=== PATIENT | female | born 1995 ===

== ENCOUNTER 2018-09-06 20:07 | Observation (INO) ==
--- NOTE | 2018-09-06 20:39 | OB/GYN History & Physical ---
Date of Encounter: 09/06/18 Time of Encounter: 20:35 Assessment and Plan (1) 32 weeks gestation of Current visit: Yes Status: Acute admitted for PIH evaluation Dr. Burkett aware of patient admission and BPs no new orders at this time (2) Elevated blood pressure affecting in third trimester, antepartum Current visit: Yes Status: Acute BPs reported to Dr. Burkett. PIH labs pending (3) Tachycardia Current visit: No Status: Acute EKG pending History of Present Illness Chief complaint: elevated BP HPI: Ms. Dahl is a 22 year old female at 32w0d presents to labor and delivery for PIH evaluation. Patient was contacted by Dr. Scott today because she had an elevated BP on 09/01/18 at her appointment and he wanted her to come to labor and delivery for PIH evaluation. Patient denies headache, dizziness, visual disturbances or edema. Patient denies contractions, LOF or VB. Patient reports good movement. Past Med Surg Social Fam HX - Past Medical History Source: patient Medical history: asthma Psychiatric history: no psych history - Past Surgical History Surgical History: cholecystectomy Additional surgical history: T&A - Social History Smoking Status: Never smoker Alcohol use: none Drug use: none - Family History Mother Living Status: Still Living Paternal Grandmother Adopted: No Hx Family Cardiac Disorders: No Hx Family Respiratory Disorders: No Hx Family Cancer: No Hx Family GI Disorders: No Hx Family Genitourinary Disorders: No Hx Family Endocrine Disorder: Yes (diabetes) Hx Family Musculoskeletal Disorders: No Hx Family Neuromuscular Disorders: No Hx Family Neurologic Disorders: No Hx Family HEENT Disorders: No Hx Family Autoimmune Disorders: No Hx Family Reproductive Disorders: No Hx Family Psychosocial Disorders: No Hx Family Medical Disorders: No Obstetrical History - Pregnancies : 2 Para: 1 Term: 1 : 0 Ab's: 0 Livin Medications and Allergies Allergy/AdvReac Type Severity Reaction Status Date / Time No Known Allergies Allergy Verified 08/04/18 02:53 Review of System OB - Constitutional Constitutional ROS IM: no chills, no fever(s), no headache(s) - Cardiovascular Cardiovascular: no chest pain, no edema, no leg edema, no lightheadedness, no palpitations, no syncope - Gastrointestinal Gastrointestinal: no constipation, no cramping, no diarrhea, no heartburn, no nausea, no vomiting - Genitourinary Genitourinary: no abnormal vaginal bleeding, no dysuria, no flank pain, no urinary frequency, no urinary urgency, no vaginal discharge, no vaginal odor, no vaginal pruritis Exam - Constitutional Constitutional: well developed, well nourished, no acute distress, obese - HEENT HEENT: Normocephaly, Mucus Membranes Moist - Neck Neck exam: full ROM, normal inspection, supple - Lungs Respiratory exam: CTAB - Cardiovascular Cardiovascular exam: tachycardia - Abdomen Abdomen: Present: bowel sounds normal, gravid, non tender - Extremities Extremities exam: full ROM, normal inspection Deep Tendon Reflex Grade: 2+ Normal - Comments Comments: FHr 145 bpm moderate variability +15x15 accels no decels noted. No contractions. Cat. 1 tracing Results Result Diagrams: 09/06/18 20:15 09/06/18 20:15 All other labs normal. - VTE Reasons for not Prescribing Prophylaxis: Treatment not Indicated - Low risk for VTE
[2018-09-06 20:41] LABS: Basophils % 0.3 %; Eosinophils # 0.1 K/mcL (0.0-0.6); Eosinophils % 0.6 %; Hematocrit 34.8 % (35.3-44.9); Hemoglobin 11.9 g/dL (11.5-15.4); Immature Granulocytes % 1.2 % (0-4); Lymphocytes # 2.2 K/mcL (0.6-4.6); Lymphocytes % 24.5 %; Mean Corpuscular HGB Conc 34.2 g/dL (31.6-35.5); Mean Corpuscular Hemoglobin 31.7 pg (28.0-33.3); Mean Corpuscular Volume 92.8 fL (83.0-100.0); Mean Platelet Volume 8.7 fL (9.4-12.4); Monocytes # 0.4 K/mcL (0.0-1.3); Monocytes % 4.6 %; Neutrophils # 6.2 K/mcL (1.6-8.9); Platelet Count 217 K/mcL (140-400); Red Blood Count 3.75 M/mcL (3.82-4.97); Red Cell Distribution Width 13.5 % (11.5-14.5); Segmented Neutrophils % 68.8 %
[2018-09-06 20:48] LABS: Amphetamine Screen,Urine Negative ng/mL (Cutoff=1000); Barbiturate Screen,Urine Negative ng/mL (Cutoff=200); Benzodiazepines Screen,Urine Negative ng/mL (Cutoff=200); Cannabinoid Screen,Urine Negative ng/mL (Cutoff = 50); Cocaine Screen,Urine Negative ng/mL (Cutoff= 300); Opiate Screen,Urine Negative ng/mL (Cutoff=300); Phencyclidine Screen,Urine Negative ng/mL (Cutoff=25); Protein/Creatinine Ratio,Urine 0.14 mg/mg (0.00-0.20)
[2018-09-06 20:58] LABS: Alanine Aminotransferase 9 Units/L (7-52); Aspartate Amino Transferase 12 Units/L (13-39); BUN/Creatinine Ratio 16 (6-26); Blood Urea Nitrogen 7 mg/dL (6-20); Lactate Dehydrogenase 127 Units/L (140-271); Uric Acid 4.8 mg/dL (2.3-7.6); eGFR For Non-African Americans > 60 (> 60)
--- NOTE | 2018-09-06 21:35 | Discharge Summary ---
Date of Encounter: 09/06/18 Time of Encounter: 21:34 - Discharge Diagnosis (1) 32 weeks gestation of Priority: Primary Status: Acute (2) Elevated blood pressure affecting in third trimester, antepartum Priority: Secondary Status: Acute Comments: Reviewed EKG, labs and BPs with Dr. Burkett Plan to discharge home with 24 hour urine and follow up with Dr. Scott (3) Tachycardia Priority: Secondary Status: Acute Comments: EKG: Sinus tachycardia Patient to see cardiology this week - Discharge Medications Allergies/Adverse Reactions: Allergy/AdvReac Type Severity Reaction Status Date / Time No Known Allergies Allergy Verified 08/04/18 02:53 Data Procedures and tests throughout hospitalization: Laboratory Tests 09/06/18 09/06/18 09/06/18 20:15 20:15 20:15 WBC 9.1 RBC 3.75 L Hgb 11.9 Hct 34.8 L MCV 92.8 MCH 31.7 MCHC 34.2 RDW 13.5 Plt Count 217 MPV 8.7 L Immature Gran % 1.2 Seg Neutrophils % 68.8 Lymphocytes % 24.5 Monocytes % 4.6 Eosinophils % 0.6 Basophils % 0.3 Neutrophils # 6.2 Lymphocytes # 2.2 Monocytes # 0.4 Eosinophils # 0.1 Basophils # 0.0 BUN Creatinine Est GFR ( Amer) Est GFR (Non-Af Amer) BUN/Creatinine Ratio Uric Acid AST ALT Lactate Dehydrogenase Urine Creatinine 95 Protein/Creatinin Ratio 0.14 Urine Total Protein 13 Urine Opiates Screen Negative Ur Barbiturates Screen Negative Ur Phencyclidine Scrn Negative Ur Amphetamines Screen Negative U Benzodiazepines Scrn Negative Urine Cocaine Screen Negative U Marijuana (THC) Screen Negative Ur Drug Screen Interp See Below 09/06/18 20:15 WBC RBC Hgb Hct MCV MCH MCHC RDW Plt Count MPV Immature Gran % Seg Neutrophils % Lymphocytes % Monocytes % Eosinophils % Basophils % Neutrophils # Lymphocytes # Monocytes # Eosinophils # Basophils # BUN 7 Creatinine 0.44 L Est GFR ( Amer) > 60 Est GFR (Non-Af Amer) > 60 BUN/Creatinine Ratio 16 Uric Acid 4.8 AST 12 L ALT 9 Lactate Dehydrogenase 127 L Urine Creatinine Protein/Creatinin Ratio Urine Total Protein Urine Opiates Screen Ur Barbiturates Screen Ur Phencyclidine Scrn Ur Amphetamines Screen U Benzodiazepines Scrn Urine Cocaine Screen U Marijuana (THC) Screen Ur Drug Screen Interp Labs on day of discharge: Labs from last 24 hours 09/06/18 09/06/18 09/06/18 20:15 20:15 20:15 WBC 9.1 RBC 3.75 L Hgb 11.9 Hct 34.8 L MCV 92.8 MCH 31.7 MCHC 34.2 RDW 13.5 Plt Count 217 MPV 8.7 L Immature Gran % 1.2 Seg Neutrophils % 68.8 Lymphocytes % 24.5 Monocytes % 4.6 Eosinophils % 0.6 Basophils % 0.3 Neutrophils # 6.2 Lymphocytes # 2.2 Monocytes # 0.4 Eosinophils # 0.1 Basophils # 0.0 BUN 7 Creatinine 0.44 L Est GFR ( Amer) > 60 Est GFR (Non-Af Amer) > 60 BUN/Creatinine Ratio 16 Uric Acid 4.8 AST 12 L ALT 9 Lactate Dehydrogenase 127 L Urine Creatinine 95 Protein/Creatinin Ratio 0.14 Urine Total Protein 13 Urine Opiates Screen Ur Barbiturates Screen Ur Phencyclidine Scrn Ur Amphetamines Screen U Benzodiazepines Scrn Urine Cocaine Screen U Marijuana (THC) Screen Ur Drug Screen Interp 09/06/18 20:15 WBC RBC Hgb Hct MCV MCH MCHC RDW Plt Count MPV Immature Gran % Seg Neutrophils % Lymphocytes % Monocytes % Eosinophils % Basophils % Neutrophils # Lymphocytes # Monocytes # Eosinophils # Basophils # BUN Creatinine Est GFR ( Amer) Est GFR (Non-Af Amer) BUN/Creatinine Ratio Uric Acid AST ALT Lactate Dehydrogenase Urine Creatinine Protein/Creatinin Ratio Urine Total Protein Urine Opiates Screen Negative Ur Barbiturates Screen Negative Ur Phencyclidine Scrn Negative Ur Amphetamines Screen Negative U Benzodiazepines Scrn Negative Urine Cocaine Screen Negative U Marijuana (THC) Screen Negative Ur Drug Screen Inter See Below Date of admission: 09/06/18 20:07 Discharging clinician: Florence Cam Anticipated date of discharge: 09/06/18 - Patient Status Disposition: Home, Self-Care Condition: Good Functional capacity at discharge: independent ambulation - Discharge Instructions Follow Up With: Kelly Scott MD [Partnered Physician] - - Diet and Activity Activity: increase activity as tolerated Diet: regular diet 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
--- NOTE | 2018-09-08 21:26 | Electrocardiograph Report ---
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
== END 2018-09-06 21:55 | disposition home or self-care (01) ==
LOC: 1NENULAB
PROVIDERS: ADMIT Advanced Practice Midwife; ATTEND Advanced Practice Midwife

== ENCOUNTER → 2018-09-20 23:09 | Observation (INO) ==
[2018-09-20 20:50] LABS: Bilirubin,Urine Negative (Negative); Blood,Urine Negative (Negative); Clarity,Urine Clear (Clear); Color,Urine Yellow (Yellow); Glucose,Urine (UA) Normal (Normal); Ketones,Urine Negative (Negative); Leukocyte Esterase,Urine Moderate (Negative); Nitrite,Urine Negative (Negative); Protein,Urine Negative (Neg-Trace); Specific Gravity,Urine 1.013 (1.010-1.025); Urobilinogen,Urine Normal (Normal)
[2018-09-20 20:53] LABS: Bacteria,Urine Moderate per hpf (None-Few); Hyaline Casts,Urine None Seen per lpf (None-Few); RBC,Urine 0-3 per hpf (0-3); Squamous Epithelial Cell,Urine Many per lpf (None-Few)
[2018-09-20 21:07] LABS: Amphetamine Screen,Urine Negative ng/mL (Cutoff=1000); Barbiturate Screen,Urine Negative ng/mL (Cutoff=200); Benzodiazepines Screen,Urine Negative ng/mL (Cutoff=200); Cannabinoid Screen,Urine Negative ng/mL (Cutoff = 50); Cocaine Screen,Urine Negative ng/mL (Cutoff= 300); Opiate Screen,Urine Negative ng/mL (Cutoff=300); Phencyclidine Screen,Urine Negative ng/mL (Cutoff=25)
[2018-09-20 21:59] LABS: Basophils % 0.3 %; Eosinophils # 0.1 K/mcL (0.0-0.6); Eosinophils % 0.6 %; Hematocrit 33.8 % (35.3-44.9); Hemoglobin 11.3 g/dL (11.5-15.4); Immature Granulocytes % 0.7 % (0-4); Lymphocytes % 22.9 %; Mean Corpuscular HGB Conc 33.4 g/dL (31.6-35.5); Mean Corpuscular Hemoglobin 31.2 pg (28.0-33.3); Mean Corpuscular Volume 93.4 fL (83.0-100.0); Mean Platelet Volume 8.8 fL (9.4-12.4); Monocytes # 0.6 K/mcL (0.0-1.3); Monocytes % 6.8 %; Platelet Count 247 K/mcL (140-400); Red Blood Count 3.62 M/mcL (3.82-4.97); Red Cell Distribution Width 14.1 % (11.5-14.5); Segmented Neutrophils % 68.7 %
[~2018-09-20 23:09] MED LIST: Acetaminophen 325 MG TABLET PO ONE; Ringers Solution, Lactated 1,000 ML IVC ONE; Ringers Solution, Lactated 1,000 ML IVC SCH
--- NOTE | 2018-09-20 23:10 | OB/GYN Progress Note ---
Date of Encounter: 09/20/18 Time of Encounter: 23:08 - Assessment and Plan (1) 34 weeks gestation of Current Visit: Yes Status: Acute (2) uterine contractions Current Visit: Yes Status: Acute Normotensive during admission, elevated heart rate noted, also to have slight low-grade fever. Patient has only had 2 bottles of water today will give LR bolus, and Tylenol. No change on serial cervical exams. Patient discharged home with labor and when to return to triage precautions. Patient verbalizes understanding and is in agreement with plan Subjective - Subjective Interval history: 34+0 weeks gestation presents to triage with complaints of contractions every 3-4 minutes since earlier today. Reports good movement, denies vaginal bleeding or leaking of fluid. Patient states she had also elevated blood pressures and tachycardia at home earlier last week, known to Dr. Scott. However blood pressure was normal today at home. Antepartum ROS: movement normal, contractions, no loss of fluid, no vaginal bleeding Objective - Exam FHR: auscultation normal FHR comments: Baseline 150 Abdomen: Present: soft, gravid (- cva tenderness) - Labs Labs: Abnormal lab results RBC 3.62 M/mcL (3.82-4.97) L 09/20/18 21:38 Hgb 11.3 g/dL (11.5-15.4) L 09/20/18 21:38 Hct 33.8 % (35.3-44.9) L 09/20/18 21:38 MPV 8.8 fL (9.4-12.4) L 09/20/18 21:38 Ur Leukocyte Esterase Moderate (Negative) H 09/20/18 20:42 Urine Microscopic WBC 5-15 per hpf (0-3) H 09/20/18 20:42 Ur Squamous Epith Cells Many per lpf (None-Few) H 09/20/18 20:42 Urine Bacteria Moderate per hpf (None-Few) H 09/20/18 20:42 Ur Culture Indicated? NO. (NO) A 09/20/18 20:42
== END | disposition hospice, home (50) ==
LOC: 1NENULAB
PROVIDERS: ADMIT Advanced Practice Midwife; ATTEND Advanced Practice Midwife

== ENCOUNTER 2018-10-12 04:00 | Inpatient (IN) ==
[2018-10-12] MEDS ORDERED: Naloxone 0.4 MG/ML INJ IVP PRN (04:15)
[2018-10-12] MEDS ORDERED: Ondansetron 4 MG/2 ML VIAL IVP PRN (04:15)
[2018-10-12] MEDS ORDERED: Metoclopramide 10 MG/2 ML VIAL IVP PRN (04:15)
[2018-10-12] MEDS ORDERED: *HR* Nalbuphine 10 MG/ML AMPUL IVP PRN (04:15)
[2018-10-12] MEDS ORDERED: Famotidine 20 MG/2 ML VIAL IVP PRN (04:15)
[2018-10-12] MEDS ORDERED: miSOPROStol 25 MCG TABLET VG PRN (04:17)
[2018-10-12 05:06] LABS: Basophils % 0.2 %; Eosinophils % 0.4 %; Hemoglobin 11.2 g/dL (11.5-15.4); Immature Granulocytes % 0.4 % (0-4); Lymphocytes # 2.5 K/mcL (0.6-4.6); Lymphocytes % 29.6 %; Mean Corpuscular HGB Conc 32.9 g/dL (31.6-35.5); Mean Corpuscular Hemoglobin 30.7 pg (28.0-33.3); Mean Corpuscular Volume 93.2 fL (83.0-100.0); Mean Platelet Volume 8.9 fL (9.4-12.4); Monocytes # 0.5 K/mcL (0.0-1.3); Neutrophils # 5.3 K/mcL (1.6-8.9); Platelet Count 245 K/mcL (140-400); Red Blood Count 3.65 M/mcL (3.82-4.97); Red Cell Distribution Width 13.8 % (11.5-14.5); Segmented Neutrophils % 63.4 %
[2018-10-12 05:15] LABS: Amphetamine Screen,Urine Negative ng/mL (Cutoff=1000); Barbiturate Screen,Urine Negative ng/mL (Cutoff=200); Benzodiazepines Screen,Urine Negative ng/mL (Cutoff=200); Cannabinoid Screen,Urine Negative ng/mL (Cutoff = 50); Cocaine Screen,Urine Negative ng/mL (Cutoff= 300); Creatinine,Urine 36 mg/dL; Opiate Screen,Urine Negative ng/mL (Cutoff=300); Phencyclidine Screen,Urine Negative ng/mL (Cutoff=25); Protein/Creatinine Ratio,Urine 0.25 mg/mg (0.00-0.20)
[2018-10-12 05:25] LABS: Alanine Aminotransferase 13 Units/L (7-52); Aspartate Amino Transferase 17 Units/L (13-39); BUN/Creatinine Ratio 20 (6-26); Blood Urea Nitrogen 8 mg/dL (6-20); Lactate Dehydrogenase 160 Units/L (140-271); Uric Acid 5.2 mg/dL (2.3-7.6); eGFR For Non-African Americans > 60 (> 60)
[2018-10-12 07:14] LABS: Varicella Zoster IgG Antibody Positive
--- NOTE | 2018-10-12 07:28 | OB/GYN History & Physical ---
Date of Encounter: 10/12/18 Time of Encounter: 07:23 Assessment and Plan (1) 37 weeks gestation of Current visit: Yes Status: Acute 22 y/o @ 37 weeks, IOL for GHTN, h/o tachycardia, GBS neg/O neg Plan: cytotec 25mcg given at 4:45AM, patient AROM'ed with clear fluid now 4cm/90%-1 will start pitocin after the cytotec is due ok for epidural, anticipate , FHT: 135/mod wadlo/+accels no decels History of Present Illness HPI: Ms. Dahl is a 22 year old female @ 37+1 weeks who presents to the office for IOL due to GHTN. She's had mild range pressures in the office with evaluation on L&D. She's been having NSTs weekly. She has a history of tachycardia with clearance from Cardiology. She does not report LOF, VB or ctxs, feels good FM. GBS neg, O neg. Her prior was significant for pre eclampsia with severe features. Past Med Surg Social Fam HX - Past Medical History Medical history: asthma Psychiatric history: no psych history - Past Surgical History Surgical History: cholecystectomy Additional surgical history: T&A - Social History Smoking Status: Never smoker Smokeless Tobacco Status: No Alcohol use: none Drug use: none - Family History Mother Living Status: Still Living Paternal Grandmother Adopted: No Family Member Ethnicity: Non- Living Status: Still Living Hx Family Cardiac Disorders: No Hx Family Respiratory Disorders: No Hx Family Cancer: No Hx Family GI Disorders: No Hx Family Genitourinary Disorders: No Hx Family Endocrine Disorder: Yes Hx Family Musculoskeletal Disorders: No Hx Family Neuromuscular Disorders: No Hx Family Neurologic Disorders: No Hx Family HEENT Disorders: No Hx Family Autoimmune Disorders: No Hx Family Reproductive Disorders: No Hx Family Psychosocial Disorders: No Hx Family Medical Disorders: No Obstetrical History - Pregnancies : 2 Para: 1 Medications and Allergies Eir580/Iron Fumarate/FA/Dss [ 19 Tablet] 10/12/18 [History] Allergy/AdvReac Type Severity Reaction Status Date / Time Penicillins [PCN] Allergy Hives Verified 10/12/18 04:09 sulfamethoxazole Allergy Hives Verified 10/12/18 04:09 [From Bactrim] trimethoprim [From Bactrim] Allergy Hives Verified 10/12/18 04:09 Review of System OB All systems PM: reviewed and no additional remarkable complaints except as stated Exam - Constitutional Constitutional: no acute distress - HEENT HEENT: PERRL - Neck Neck exam: full ROM - Lungs Respiratory exam: CTAB - Cardiovascular Cardiovascular exam: RRR - Abdomen Abdomen: Present: gravid Results Result Diagrams: 10/12/18 04:20 10/12/18 04:20 Abnormal lab results RBC 3.65 M/mcL (3.82-4.97) L 10/12/18 04:20 Hgb 11.2 g/dL (11.5-15.4) L 10/12/18 04:20 Hct 34.0 % (35.3-44.9) L 10/12/18 04:20 MPV 8.9 fL (9.4-12.4) L 10/12/18 04:20 Creatinine 0.40 mg/dL (0.60-1.20) L 10/12/18 04:20 Protein/Creatinin Ratio 0.25 mg/mg (0.00-0.20) H 10/12/18 04:20 All other labs normal. - VTE Reasons for not Prescribing Prophylaxis: Treatment not Indicated - Low risk for VTE
[2018-10-12] MEDS: Ringers Solution, Lactated 1,000 ML IVC SCH ×2 (07:56→11:35)
[2018-10-12] MEDS ORDERED: Lidocaine -MPF 2% 5 ML VIAL ONE (09:36)
[2018-10-12] MEDS ORDERED: Epidural Premix (fent/bupiv) 110 ML EP ONE (09:36)
[2018-10-12] MEDS ORDERED: EPHEDrine 50 MG/ML VIAL ONE (10:06)
[2018-10-12] MEDS ORDERED: Ondansetron 4 MG/2 ML VIAL ONE (10:10)
[2018-10-12] MEDS ORDERED: Ringers Solution, Lactated 1,000 ML ONE (10:10)
--- NOTE | 2018-10-12 10:23 | OB Labor Progress Note ---
Date of Encounter: 10/12/18 Time of Encounter: 10:23 Labor Progress Note - Subjective Subjective: patient is doing well, wants epidural - Vital Signs Vital Signs: VSS - Cervix Cervix: 4cm/90%-1 - Heart Tones Heart Tones: 145/mod waldo/+accels, no decels - [place]: Q2-3 - Interventions Interventions: ok for epidural, anticipate
--- NOTE | 2018-10-12 10:24 | Anesthesia Evaluation PreOp ---
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: Denies Any Significant HX Other Medical History: Denies Any Significant HX Anesthesia History: No Prior Anesthetic Complications, Past Anesthesia (previous epidural no comp, no family hx.) Alcohol Use: none Drug use: none Medications and Allergies Kil605/Iron Fumarate/FA/Dss [ 19 Tablet] 10/12/18 [History] Allergy/AdvReac Type Severity Reaction Status Date / Time Penicillins [PCN] Allergy Hives Verified 10/12/18 04:09 sulfamethoxazole Allergy Hives Verified 10/12/18 04:09 [From Bactrim] trimethoprim [From Bactrim] Allergy Hives Verified 10/12/18 04:09 Anesthesia Results - Labs 10/12/18 04:20 10/12/18 04:20 Anesthesia Exam - HEENT Pupil (Motor): Pupils equal Mallampati: II Teeth: Normal Oral Opening: Greater than 3 - INDUSTRIAL SERVICER LOC: Oriented INDUSTRIAL SERVICER Motor: Normal RUE, Normal LUE, Normal RLE, Normal LLE, Normal Face INDUSTRIAL SERVICER Sensory: Normal: RUE, LUE, RLE, LLE, Face - Cardiac Rhythm: Regular Murmur: None - Pulmonary Breath Sounds: bilateral Clear Respiratory Effort: Symmetrical Anesthesia Assess/Plan ASA Score: 2 Level of consciousness: Cooperative, Oriented Anesthetic Plan: General, Spinal, Epidural Monitoring Plan: Standard Monitors Recovery Plan: PACU
--- NOTE | 2018-10-12 10:36 | Anesthesia Procedures ---
Addendum entered and electronically signed by Dusty Loredo CRNA 10/12/18 17:23: Delivery Date: 10/12/18 Delivery Time: 17:00 Original Note: Date of Encounter: 10/12/18 Time of Encounter: 09:52 Procedures: Anesthesia - Epidural/Spinal Patient ID/Chart reviewed: Yes Patient examined: Yes OB Eval: Gestational age: 37 OB Eval: : 2 OB Eval: Hx Para: 1 OB Eval: Contractions: Non-stressed pattern Consent Obtained: Yes Supplemental Oxygen: None/Room Air Site Prep: Aseptic Technique, Sterile prep and drape, 0.5% Chlorhexidine/Alcohol Patient position: upright Local Anesthetic: Lidocaine 1% Amount of Local Anesthetic used: 2 Touhy Needle Gauge: 18 Touhy Needle Depth (cm): 7 Catheter Depth at Skin (cm): 12 Test Dose (1.5% Lido + Epi): Volume given (mls): 4 Test Dose Result: Negative Loading Dose: Other: 10ML FROM SOLUTION Loading Dose Administered: Thru Catheter Infusion Med: 0.125% Bupivacaine w/ 2 mcg/ml Fentanyl Infusion Rate (mls/hr): [address]: Tegaderm, Tape Interspace Used: L3-L4 Loss of Resistance (SHAHANA): Yes (SALINE) Blood: No CSF: No Paresthesia: No Procedure: VSS THOUGH OUT PORCEDURE, fhr STABLE PER RN'S, POST PERCEDURE pt had mild hypotension, very symptomatic requiring 3 doses of 50mcg yeyo, and 2 doses of ephedrine required, recommended EKG though out stress times d/t HR going as high as 160 post epidural, with laboring process for precautions.
[2018-10-12] MEDS ORDERED: Epidural Premix (fent/bupiv) 110 ML EP SCH (10:45)
[2018-10-12] MEDS ORDERED: Oxytocin 20 units/ LR 1000 mL 20 UNIT/1,000 ML BAG IVC SCH ×2 (11:30→18:38)
--- NOTE | 2018-10-12 13:26 | Event Note ---
Date of Encounter: 10/12/18 Time of Encounter: 13:[address] Scott's request for accurate contraction monitoring. SVE 5cm. IUPC placed without difficulty.
[2018-10-12] MEDS ORDERED: Acetaminophen 325 MG TABLET PO ONE (14:40)
--- NOTE | 2018-10-12 17:20 | OB/GYN Procedure Note ---
Delivery - Delivery Date: 10/12/18 Provider: Kelly Scott Intrapartum events: none Delivery induction: misoprostol Delivery augmentation: rupture of membranes, pitocin Delivery monitor: external FHT, external uterine, internal uterine Anesthesia: epidural Quantitated Blood Loss: 50 - (s) Infant A Infant Delivery Date: 10/12/18 Infant Delivery Time: 17:00 Presentation: vertex Position: JEANETTE Route of delivery: Gender: Male Viability: Viable at 1 minute: 8 at 5 mins: 9 Shoulder Dystocia: not encountered Specimens collected: cord blood Placenta: complete extraction Cord: 3 umbilical vessels - Repair Episiotomy: none Laceration Description: None - Complications Delivery complications: none - Disposition Mom disposition: stable in LDR [place] disposition: stable in LDR - Comments Comments: Albina is a 22 y/o now who delivered a viable male infant @ 1700hrs. delivered JEANETTE, 3VC and placed on Mom's chest. Cord clamped and cut. weight 2800g (6lbs 3oz), APGARs 8/9. EBL 50ml. Placenta delivered @ 1704hrs intact. No lacerations. Mother and doing well.
[2018-10-12] MEDS ORDERED: Lanolin 7 G OINT...G. TP PRN (18:38)
[2018-10-12] MEDS ORDERED: Benzocaine/Menthol 56 GM AEROSOL SPRAY TP PRN (18:38)
[2018-10-12] MEDS ORDERED: Acetaminophen 325 MG TABLET PO PRN (18:38)
[2018-10-12] MEDS ORDERED: Measles/Mumps/Rubella Vacc 0.5 ML VIAL SQ PRN (18:38)
[2018-10-12] MEDS: Ibuprofen 600 MG TABLET PO PRN (20:52)
[2018-10-13 08:01] VITALS: BP 107/70
[2018-10-13] MEDS: Ibuprofen 600 MG TABLET PO PRN (08:05)
[2018-10-13] MEDS ORDERED: Prenatal Vit/FA 1 EACH TABLET PO SCH (09:00)
[2018-10-13 09:57] LABS: Basophils % 0.3 %; Eosinophils # 0.1 K/mcL (0.0-0.6); Eosinophils % 0.6 %; Hematocrit 32.9 % (35.3-44.9); Hemoglobin 10.8 g/dL (11.5-15.4); Immature Granulocytes % 0.5 % (0-4); Lymphocytes # 2.2 K/mcL (0.6-4.6); Mean Corpuscular HGB Conc 32.8 g/dL (31.6-35.5); Mean Corpuscular Hemoglobin 31.3 pg (28.0-33.3); Mean Platelet Volume 8.9 fL (9.4-12.4); Monocytes # 0.5 K/mcL (0.0-1.3); Monocytes % 5.3 %; Neutrophils # 6.6 K/mcL (1.6-8.9); Platelet Count 224 K/mcL (140-400); Red Blood Count 3.45 M/mcL (3.82-4.97); Red Cell Distribution Width 14.1 % (11.5-14.5); Segmented Neutrophils % 70.3 %
[2018-10-13 10:11] LABS: Mean Corpuscular Volume 95.4 fL (83.0-100.0)
[2018-10-13] MEDS ORDERED: Rho Immune Globulin 1,500 UNIT SYRINGE IM ONE (10:48)
--- NOTE | 2018-10-13 11:15 | Discharge Summary ---
Date of Encounter: 10/13/18 Time of Encounter: 11:12 - Discharge Diagnosis (1) Vaginal delivery Priority: Primary Status: Acute Comments: Feeling well Tolerating regular diet Pain well-controlled with by mouth pain meds Ambulating independently Voiding independently Lochia light Passing flatus, no BM yet Vital signs stable Considering nexplanon for control - will follow up with [facility] home [facility] home today (2) anemia Priority: Secondary Status: Acute Comments: Continue iron supplementation daily through visit (3) Paroxysmal SVT (supraventricular tachycardia) Priority: Secondary Status: Acute Comments: Follow-up with cardiology - Discharge Medications Prescriptions: New Ferrous Sulfate 325 mg PO DAILY #30 tablet Acetaminophen [Tylenol] 650 mg PO Q6HR PRN tablet PRN Reason: Mild Pain Ibuprofen [Motrin] 600 mg PO Q6HR PRN #30 tablet PRN Reason: Cramping Benzocaine/Menthol [place] [Dermoplast [place]] 1 appl TP QID PRN aerosol PRN Reason: See Comments Docusate [Colace] 100 mg PO BID #30 capsule Lanolin [Lansinoh] 1 appl TP TID PRN oint...g. PRN Reason: Sore Nipples Continue [id number]/Iron Fumarate/FA/Dss [ 19 Tablet] Home Medications: Gcy423/Iron Fumarate/FA/Dss [ 19 Tablet] 10/12/18 [History] Acetaminophen [Tylenol] 650 mg PO Q6HR PRN tablet 10/13/18 [Rx] Benzocaine/Menthol [place] [Dermoplast [place]] 1 appl TP QID PRN aerosol 10/13/18 [Rx] Docusate [Colace] 100 mg PO BID #30 capsule 10/13/18 [Rx] Ferrous Sulfate 325 mg PO DAILY #30 tablet 10/13/18 [Rx] Ibuprofen [Motrin] 600 mg PO Q6HR PRN #30 tablet 10/13/18 [Rx] Lanolin [Lansinoh] 1 appl TP TID PRN oint...g. 10/13/18 [Rx] Allergies/Adverse Reactions: Allergy/AdvReac Type Severity Reaction Status Date / Time Penicillins [PCN] Allergy Hives Verified 10/12/18 04:09 sulfamethoxazole Allergy Hives Verified 10/12/18 04:09 [From Bactrim] trimethoprim [From Bactrim] Allergy Hives Verified 10/12/18 04:09 Data Procedures and tests throughout hospitalization: Laboratory Tests 10/12/18 10/12/18 10/12/18 04:20 04:20 04:20 WBC 8.3 RBC 3.65 L Hgb 11.2 L Hct 34.0 L MCV 93.2 MCH 30.7 MCHC 32.9 RDW 13.8 Plt Count 245 MPV 8.9 L Immature Gran % 0.4 Seg Neutrophils % 63.4 Lymphocytes % 29.6 Monocytes % 6.0 Eosinophils % 0.4 Basophils % 0.2 Neutrophils # 5.3 Lymphocytes # 2.5 Monocytes # 0.5 Eosinophils # 0.0 Basophils # 0.0 Volume Blood BUN Creatinine Est GFR ( Amer) Est GFR (Non-Af Amer) BUN/Creatinine Ratio Uric Acid AST ALT Lactate Dehydrogenase Urine Creatinine 36 Protein/Creatinin Ratio 0.25 H Urine Total Protein 9 Urine Opiates Screen Negative Ur Barbiturates Screen Negative Ur Phencyclidine Scrn Negative Ur Amphetamines Screen Negative U Benzodiazepines Scrn Negative Urine Cocaine Screen Negative U Marijuana (THC) Screen Negative Ur Drug Screen Interp See Below T.pallidum Ab Interpret Negative VZV IgG Antibody Positive Specimen Rejected Screen Baby's Blood Type Mother's Blood Type Rhogam Indicated Rhogam Req for Mother 10/12/18 10/12/18 10/13/18 04:20 18:01 04:08 WBC RBC Hgb Hct MCV MCH MCHC RDW Plt Count MPV Immature Gran % Seg Neutrophils % Lymphocytes % Monocytes % Eosinophils % Basophils % Neutrophils # Lymphocytes # Monocytes # Eosinophils # Basophils # Volume Blood BUN 8 Creatinine 0.40 L Est GFR ( Amer) > 60 Est GFR (Non-Af Amer) > 60 BUN/Creatinine Ratio 20 Uric Acid 5.2 AST 17 ALT 13 Lactate Dehydrogenase 160 Urine Creatinine Protein/Creatinin Ratio Urine Total Protein Urine Opiates Screen Ur Barbiturates Screen Ur Phencyclidine Scrn Ur Amphetamines Screen U Benzodiazepines Scrn Urine Cocaine Screen U Marijuana (THC) Screen Ur Drug Screen Interp T.pallidum Ab Interpret VZV IgG Antibody Specimen Rejected MCV Delta Screen POSITIVE Baby's Blood Type A RH POSITIVE Mother's Blood Type O RH NEGATIVE Rhogam Indicated YES Rhogam Req for Mother 1 10/13/18 10/13/18 09:27 18:01 WBC 9.4 RBC 3.45 L Hgb 10.8 L Hct 32.9 L MCV 95.4 MCH 31.3 MCHC 32.8 RDW 14.1 Plt Count 224 MPV 8.9 L Immature Gran % 0.5 Seg Neutrophils % 70.3 Lymphocytes % 23.0 Monocytes % 5.3 Eosinophils % 0.6 Basophils % 0.3 Neutrophils # 6.6 Lymphocytes # 2.2 Monocytes # 0.5 Eosinophils # 0.1 Basophils # 0.0 Volume Blood 0 BUN Creatinine Est GFR ( Amer) Est GFR (Non-Af Amer) BUN/Creatinine Ratio Uric Acid AST ALT Lactate Dehydrogenase Urine Creatinine Protein/Creatinin Ratio Urine Total Protein Urine Opiates Screen Ur Barbiturates Screen Ur Phencyclidine Scrn Ur Amphetamines Screen U Benzodiazepines Scrn Urine Cocaine Screen U Marijuana (THC) Screen Ur Drug Screen Interp T.pallidum Ab Interpret VZV IgG Antibody Specimen Rejected Screen Baby's Blood Type Mother's Blood Type Rhogam Indicated Rhogam Req for Mother Labs on day of discharge: Labs from last 24 hours 10/13/18 10/13/18 10/13/18 18:01 09:27 04:08 WBC 9.4 RBC 3.45 L Hgb 10.8 L Hct 32.9 L MCV 95.4 MCH 31.3 MCHC 32.8 RDW 14.1 Plt Count 224 MPV 8.9 L Immature Gran % 0.5 Seg Neutrophils % 70.3 Lymphocytes % 23.0 Monocytes % 5.3 Eosinophils % 0.6 Basophils % 0.3 Neutrophils # 6.6 Lymphocytes # 2.2 Monocytes # 0.5 Eosinophils # 0.1 Basophils # 0.0 Volume Blood 0 Specimen Rejected MCV Delta Screen Baby's Blood Type Mother's Blood Type Rhogam Indicated Rhogam Req for Mother 10/12/18 18:01 WBC RBC Hgb Hct MCV MCH MCHC RDW Plt Count MPV Immature Gran % Seg Neutrophils % Lymphocytes % Monocytes % Eosinophils % Basophils % Neutrophils # Lymphocytes # Monocytes # Eosinophils # Basophils # Volume Blood Specimen Rejected Screen POSITIVE Baby's Blood Type A RH POSITIVE Mother's Blood Type O RH NEGATIVE Rhogam Indicated YES Rhogam Req for Mother 1 Date of admission: 10/12/18 04:07 Primary care physician: PCP NONE Consults: 10/12/18 18:38 Consult to [employer] [CONS] Routine Comment: Vaginal delivery, consult needed Discharging clinician: Amirah Delong Anticipated date of discharge: 10/13/18 - Patient Status Disposition: Home, Self-Care Condition: Good Functional capacity at discharge: independent ambulation Overall status at discharge: patient is progressing back to baseline - Discharge Instructions Follow Up With: NONE,PCP [Primary Care Provider] - Kelly Scott MD [Partnered Physician] - - Diet and Activity Activity: increase activity as tolerated Diet: regular diet Hospital Course Procedures: s/p Reason for admission: induction of labor, IUP at term Delivery: Episiotomy: none Laceration: none Other procedures: none complications: none Discharge diagnosis: IUP at term delivered baby: male Hospital course: Patient presented to labor and delivery for induction of labor secondary to gestational hypertension. She did have an episode of SVT during labor. Recommendation to follow-up with cardiology . Her labor progressed to complete and she delivered a viable male infant. Her course has been uncomplicated. She will be discharged home in stable condition with appropriate medications and follow Time Attestation: Total time spent providing and/or coordinating discharge services: Time Spent: Less than 30 minutes Exam - Constitutional Vitals: Temp Pulse Resp BP Pulse Ox 98.3 F 101 16 107/70 99 10/13/18 08:00 10/13/18 08:00 10/13/18 08:00 10/13/18 08:00 10/13/18 04:05 General appearance IM: A&O X 3 - Respiratory Respiratory exam: Present: CTAB - Cardiovascular Cardiovascular exam IM: Present: RRR, +S1, +S2 - GI/Abdominal GI/Abdominal exam IM: normal bowel sounds, no peritoneal signs - Rectal Rectal exam: deferred - Uterine Tone: Firm Uterus Position: At Umbilicus, Midline - Extremities Exam Extremities exam IM: Present: normal capillary refill, normal inspection, radial pulses palpable and symmetrical - Neurological Exam Neurological exam: alert, CN II-XII intact, normal gait, oriented X3, reflexes normal, no focal deficits, strengths equal and symetr throughout - Psychiatric Additional comments: Signs and symptoms of depression discussed with patient and she verbalizes understanding of when to seek help.
[2018-10-13] MEDS ORDERED: Lidocaine -MPF 1% 5 ML AMPUL INFILT ONE (12:52)
[2018-10-13] MEDS ORDERED: Etonogestrel 68 MG IMPLANT IL ONE (12:52)
--- NOTE | 2018-10-13 14:03 | Procedure Note ---
Date of procedure: 10/13/18 Pre-op diagnosis: Desires LARC Post-op diagnosis: other (Nexplanon insertion) Procedure: General Examination: Informed consent was obtained and time out performed. Patient was placed in the supine position with arm in the appropriate position. Betadine was used to prep the arm in a sterile fashion. 1% lidocaine with epinephrine was used to anesthetize. The implant was inserted in the subcutaneous tissue to the appropriate length then the Nexplanon was released. Both myself and patient can palpate the bee without difficulty. Steri-Strips and a pressure dressing was applied. Patient tolerated the procedure well. She left the office ambulatory and was instructed on wound care to follow up PRN. Anesthesia: local (3cc lidocaine) Surgeon: Amirah Delong Was there an topographical field assistant present: No Estimated blood loss (cc): 0 Specimen: Nexplanon inserted Pathology: none sent Condition: stable Disposition: no change
== END 2018-10-13 19:30 | disposition home or self-care (01) | DRG 560 ==
LOC: 1NENULAB 04:07 → 1NENUOBS 19:34
PROVIDERS: ADMIT Student in an Organized Health Care Education/Training Program; ATTEND Student in an Organized Health Care Education/Training Program

== ENCOUNTER → 2019-09-13 20:00 | Observation (INO) ==
[2019-09-13 18:33] LABS: Basophils % 0.5 %; Red Cell Distribution Width 13.7 % (11.5-14.5)
[2019-09-13 18:35] LABS: Eosinophils % 0.5 %; Hematocrit 37.8 % (35.3-44.9); Immature Granulocytes % 0.8 % (0-4); Immature Platelets 2.2 % (1.1-6.1); Lymphocytes # 1.4 K/mcL (0.6-4.6); Lymphocytes % 17.3 %; Mean Corpuscular HGB Conc 31.7 g/dL (31.6-35.5); Mean Corpuscular Hemoglobin 31.6 pg (28.0-33.3); Mean Corpuscular Volume 99.5 fL (83.0-100.0); Mean Platelet Volume 9.9 fL (9.4-12.4); Monocytes # 0.5 K/mcL (0.0-1.3); Monocytes % 5.7 %; Platelet Count 216 K/mcL (140-400); Segmented Neutrophils % 75.2 %; White Blood Count 7.9 K/mcL (4.3-11.1)
[2019-09-13 18:42] LABS: Protein/Creatinine Ratio,Urine 0.11 mg/mg (0.00-0.20)
[2019-09-13 18:56] LABS: Alanine Aminotransferase 8 Units/L (7-52); Aspartate Amino Transferase 9 Units/L (13-39); BUN/Creatinine Ratio 18 (6-26); Blood Urea Nitrogen 7 mg/dL (6-20); Lactate Dehydrogenase 107 Units/L (140-271); Neutrophils # 5.9 K/mcL (1.6-8.9); Uric Acid 4.8 mg/dL (2.3-7.6); eGFR For African Americans > 60 (> 60); eGFR For Non-African Americans > 60 (> 60)
== END | disposition home or self-care (01) ==
LOC: 1NENULAB
PROVIDERS: ADMIT Obstetrics & Gynecology; ATTEND Obstetrics & Gynecology

== ENCOUNTER → 2019-11-08 16:40 | Observation (INO) ==
[2019-11-08 15:49] LABS: Basophils % 0.3 %; Eosinophils % 0.6 %; Hematocrit 35.4 % (35.3-44.9); Hemoglobin 11.6 g/dL (11.5-15.4); Immature Granulocytes % 0.7 % (0-4); Lymphocytes # 1.6 K/mcL (0.6-4.6); Lymphocytes % 22.5 %; Mean Corpuscular HGB Conc 32.8 g/dL (31.6-35.5); Mean Corpuscular Volume 97.5 fL (83.0-100.0); Mean Platelet Volume 8.4 fL (9.4-12.4); Monocytes # 0.4 K/mcL (0.0-1.3); Monocytes % 5.9 %; Platelet Count 232 K/mcL (140-400); Red Blood Count 3.63 M/mcL (3.82-4.97); Red Cell Distribution Width 13.4 % (11.5-14.5); White Blood Count 7.1 K/mcL (4.3-11.1)
[2019-11-08 15:58] LABS: Protein/Creatinine Ratio,Urine 0.13 mg/mg (0.00-0.20)
[2019-11-08 16:09] LABS: Alanine Aminotransferase 8 Units/L (7-52); Aspartate Amino Transferase 10 Units/L (13-39); BUN/Creatinine Ratio 19 (6-26); Blood Urea Nitrogen 8 mg/dL (6-20); Lactate Dehydrogenase 110 Units/L (140-271); eGFR For African Americans > 60 (> 60); eGFR For Non-African Americans > 60 (> 60)
== END | disposition home or self-care (01) ==
LOC: 1NENULAB
PROVIDERS: ADMIT Obstetrics & Gynecology; ATTEND Obstetrics & Gynecology

== ENCOUNTER → 2019-12-10 15:15 | Observation (INO) ==
[2019-12-10] MEDS: Ringers Solution, Lactated 1,000 ML IVC SCH ×2 (10:47→14:27)
[2019-12-10 10:59] LABS: Amorphous Sediment,Urine Few per hpf (None-Few); Bacteria,Urine Few per hpf (None-Few); Bilirubin,Urine Negative (Negative); Blood,Urine Negative (Negative); Clarity,Urine Turbid (Clear); Color,Urine Yellow (Yellow); Glucose,Urine (UA) Normal (Normal); Ketones,Urine Negative (Negative); Leukocyte Esterase,Urine Trace (Negative); Mucus,Urine Few per lpf (None-Few); Nitrite,Urine Negative (Negative); PH,Urine 6.5 pH Units (5.0-8.0); Protein,Urine 30 mg/dL (Neg-Trace); RBC,Urine 0-3 per hpf (0-3); Specific Gravity,Urine 1.019 (1.010-1.025); Squamous Epithelial Cell,Urine Few per hpf (None-Few); Urobilinogen,Urine Normal (Normal)
[~2019-12-10 15:15] MED LIST changes: +Betamethasone Acet/SodPhos 30 MG/5 ML VIAL IM SCH; +Clindamycin 900 MG/50 ML 900 MG/50 ML IV.SOLN IVPB ONE; +NIFEdipine 10 MG CAPSULE PO ONE; -Ringers Solution, Lactated 1,000 ML IVC ONE
== END | disposition short-term general hospital (02) ==
LOC: 1NENULAB
PROVIDERS: ADMIT Obstetrics & Gynecology; ATTEND Obstetrics & Gynecology

== ENCOUNTER → 2019-12-13 16:28 | Observation (INO) ==
[2019-12-13 13:30] LABS: Basophils % 0.3 %; Eosinophils # 0.1 K/mcL (0.0-0.6); Eosinophils % 0.4 %; Hematocrit 37.8 % (35.3-44.9); Hemoglobin 12.1 g/dL (11.5-15.4); Immature Granulocytes % 1.1 % (0-4); Lymphocytes # 2.9 K/mcL (0.6-4.6); Lymphocytes % 21.7 %; Mean Corpuscular Hemoglobin 31.3 pg (28.0-33.3); Mean Corpuscular Volume 97.7 fL (83.0-100.0); Mean Platelet Volume 8.9 fL (9.4-12.4); Monocytes # 1.1 K/mcL (0.0-1.3); Monocytes % 8.3 %; Nucleated Red Blood Cells 0.2 /100 WBC (0); Platelet Count 310 K/mcL (140-400); Red Blood Count 3.87 M/mcL (3.82-4.97); Red Cell Distribution Width 13.8 % (11.5-14.5); Segmented Neutrophils % 68.2 %; White Blood Count 13.2 K/mcL (4.3-11.1)
[2019-12-13 15:04] LABS: Bacteria,Urine Few per hpf (None-Few); Bilirubin,Urine Negative (Negative); Blood,Urine Negative (Negative); Clarity,Urine Clear (Clear); Color,Urine Light-Yellow (Yellow); Glucose,Urine (UA) Normal (Normal); Ketones,Urine Negative (Negative); Leukocyte Esterase,Urine Large (Negative); Mucus,Urine Few per lpf (None-Few); Nitrite,Urine Negative (Negative); Protein,Urine Negative (Neg-Trace); RBC,Urine 0-3 per hpf (0-3); Squamous Epithelial Cell,Urine Few per hpf (None-Few); Urobilinogen,Urine Normal (Normal)
[~2019-12-13 16:28] MED LIST changes: -Betamethasone Acet/SodPhos 30 MG/5 ML VIAL IM SCH; -Clindamycin 900 MG/50 ML 900 MG/50 ML IV.SOLN IVPB ONE; -NIFEdipine 10 MG CAPSULE PO ONE
== END | disposition home or self-care (01) ==
LOC: 1NENULAB
PROVIDERS: ADMIT Advanced Practice Midwife; ATTEND Advanced Practice Midwife